=== PATIENT | female | born 1970 | race Hispanic/Latino ===

== ENCOUNTER 2018-09-18 12:37 | Observation (INO) | payer OTHER ==
[~2018-09-18] VITALS: Ht 160 cm; Wt 75.0 kg
[~2018-09-18 12:37] MED LIST: ALPRAZOLAM0.5 MG PO; CAMILA0.35 MG PO; CEPHALEXIN500 MG PO; CETIRIZINE10 MG PO; CIPROFLOXACN500 MG PO; CLARITIN10 M1 PO; DEXILANT60 MG PO; ESCITALOPRAM OX10 MG PO; LORAZEPAM0.5 MG PO; LORTAB5 OR; MECLIZINE25 MG PO; NAPROXEN250 MG PO; OXYBUTYNIN5 M1 PO; PEPCID20 MG PO; PERCOCET1 TA4 PO; PREVACID15 M1; PREVACID30 M1 PO; PYRIDIUM200 MG PO; SLOW FE160 MG PO; ULTRAM50 M1 PO; ZOFRAN ODT4 MG OR; ZOFRAN ODT4 MG PO; ZOFRAN ODT8 MG SL; [UNRECOGNIZED DRUG - OTHER] PO
--- NOTE | 2018-09-18 13:00 | NUR ---
Pt returned to waiting room. Advised of busy ER status.
--- NOTE | 2018-09-18 14:00 | NUR ---
Pt changed into gown and clothing from waist down to be removed. Pt opted to keep shirt on.
--- NOTE | 2018-09-18 14:00 | NUR ---
Pt ambulated to room # 3 with steady gait. Explained busy ER status. Pt showed understanding. Call whittaker within reach. Denies any needs at this time. Will continue to monitor.
[2018-09-18] MEDS ORDERED: SMZ-TMP DS1 TAB PO (14:26)
[2018-09-18] MEDS ORDERED: CITALOPRAM40 MG PO (14:26)
[2018-09-18] MEDS ORDERED: TOPAMAX50 MG PO (14:27)
[2018-09-18] MEDS ORDERED: PANTOPRAZOLE SO40 M1 PO (14:27)
--- NOTE | 2018-09-18 14:45 | NUR ---
Pt resting on stretcher with eyes open. Mother at bedside. Pt appears to be in pain when moving. Explained busy ER and wait time. Pt showed understanding. Call whittaker within reach. Denies any needs at this time. Will continue to monitor.
--- NOTE | 2018-09-18 15:15 | NUR ---
IV established to LAC per EDP order. Explained POC and wait time for medications to infuse. Pt showed understanding. Call whittaker within reach. Denies any needs at this time. Will continue to monitor.
[2018-09-18 15:32] LABS: HEMATOCRIT 36.8 % (37.0-47.0); HEMOGLOBIN 11.9 g/dl (12.0-16.0); IMMATURE GRANULOCYTES 0.6 % (0.0-5.0); MEAN CORPUSCULAR HGB 26.9 pG CALC (26.0-32.0); MEAN CORPUSCULAR HGB CONC 32.3 g/L CALC (32.0-36.0); NEUT# 8.44 thou/uL (2.00-7.15); RED BLOOD COUNT 4.42 mill/uL (4.20-5.60); RED CELL DISTRI WIDTH 14.3 % (11.5-15.5)
[2018-09-18 15:33] LABS: MEAN CELL VOLUME 83.3 fL CALC (80.0-100.0)
--- NOTE | 2018-09-18 15:38 | NUR ---
Pt placed on fall precautions and advised to not get up without assistance from staff. Pt and mother at bedside showed understanding. Call whittaker within reach. Denies any needs at this time. Will continue to monitor.
--- NOTE | 2018-09-18 15:40 | NUR ---
Pt c/o feeling hot. Temp 100.0. EDP notified. No new orders received.
[2018-09-18 15:48] LABS: BUN 7 mg/dL (7-17); BUN/CREATININE RATIO 11 (12-20 (CALC)); CARBON DIOXIDE 25 mmol/l (22-30); CREATININE 0.6 mg/dL (0.5-1.0); GFR > 60 ML/MIN (>=60 (CALC)); GFR FOR AFR.AMER. > 60 ML/MIN (>=60 (CALC)); POTASSIUM 3.6 mmol/l (3.5-5.1); SODIUM 141 mmol/l (137-146)
--- NOTE | 2018-09-18 16:05 | NUR ---
Azactam finished at this time. IV site to LAC WNL. No redness, swelling or pain to site. IV vancomycin started at this time. Explained possible adverse reactions and to notify nurse. Pt showed understanding. Call whittaker within reach. Denies any needs at this time. Will continue to monitor.
[2018-09-18 16:08] LABS: ANION GAP 15 (6-22 (CALC)); CHLORIDE 105 mmol/l (95-108)
--- NOTE | 2018-09-18 16:10 | NUR ---
Pt states pain is still there, but better than before she was medicated. Pt is an 8 out of 10 pain. EDP notified. New orders received.
--- NOTE | 2018-09-18 16:15 | NUR ---
Pt medicated per EDP order for 8 out of 10 pain. Vancomycin stopped at this time d/t pt going to CT scan. Pt to radiology via W/C.
--- NOTE | 2018-09-18 16:35 | NUR ---
Vancomycin restarted to LAC per EDP order. Site WNL. Explained wait time for medication to infuse. Call whittaker within reach. Denies any needs at this time. Will continue to monitor.
--- NOTE | 2018-09-18 16:50 | NUR ---
Pt. rechecked post pain med administration. Pain level (1-10): 7 Pain better/worse: better Call whittaker within reach. Denies any needs at this time. Will continue to monitor.
--- NOTE | 2018-09-18 17:35 | NUR ---
Vancomycin infusion complete at this time. IV site to LAC WNL. No redness or swelling noted. Pt denies any pain to site. Pt states pain is better now a 5 out of 10. Family at bedside. Updated on POC including admission and room #. Pt showed understanding. Call whittaker within reach. Denies any needs at this time. Will continue to monitor.
--- NOTE | 2018-09-18 17:40 | NUR ---
Report given to JACQUIE Valdivia. Awaiting admission orders before taking pt to floor.
--- NOTE | 2018-09-18 17:41 | NUR ---
Advised charge nurse of orders not yet in per protocol. Will call admitting physician
--- NOTE | 2018-09-18 17:52 | NUR ---
Admission Note Report Given to: SBAR PRINTED TO FLOOR Transported by: X Wheelchair Stretcher Transported with: X Nurse Transporter X Patent IV O2 Curriculum Developer All belongings sent with pt to floor.
--- NOTE | 2018-09-18 17:55 | NUR ---
PT ARRIVED TO MS2 VIA WHEELCHAIR, PT ALERT AND ORIENTED X3, NO SIGNS OF DISTRESS NOTED, RESP EVEN AND UNLABORED. PT AMBULATED TO BATHROOM, STATES PAIN WHEN URINATING DUE TO ABSCESS. ORIENTED TO ROOM AND CALL LIGHT, DISCUSSED POC AND ON CONSULT. PT VERBALIZED UNDERSTANDING. PT PROVIDED WITH PADS AND MESH PANIES. PART A ASSESSMENT COMPLETED. DINNER PROVIDED. CALL LIGHT IN REACH,CONTINUE TO MONITOR.
[2018-09-18 18:40] VITALS: BP 104/59
--- NOTE | 2018-09-18 19:25 | NUR ---
SPOKE WITH EXPEDITION SUPERVISOR, ORDERS FOR TYLENOL AND PAIN MEDICATIONS. NOTIFIED ON-COMING SHIFT.
--- NOTE | 2018-09-18 20:15 | NUR ---
PT SITTING UP IN BED WITH MANY VISITORS IN ROOM. PT C/O PAIN 10/10 IN LEANNE-AREA. IV SITE APPEARS HEALTHY. DISCUSSED POC PT VERBALIZED UNDERSTANDING. ASSESSMENT COMPLETE. CALL LIGHT WITHIN REACH. WILL CONTINUE TO MONITOR.
--- NOTE | 2018-09-18 21:30 | NUR ---
PT C/O ADENIKE BEING SOILED. MODERATE AMOUNT OF SEROSANGINOUS DRAINAGE NOTED TO ADENIKE. CULTURE OBTAIN FROM LABIA WOUND. PROVIDED LINEN CHANGE AND PADS. PT REQUESTING SHOWER PROVIDED NECESSITIES NEEDED AT THIS TIME.
--- NOTE | 2018-09-19 01:07 | NUR ---
PT RESTING IN BED WITH SEVERAL FAMILY MEMBERS IN ROOM. RESPIRATIONS EVEN AND UNLABORED. NO S/S OF PAIN NOTED. CALL LIGHT WITHIN REACH. WILL CONTINUE TO MONITOR.
[2018-09-19 04:15] VITALS: BP 97/64
--- NOTE | 2018-09-19 04:55 | NUR ---
Peripheral IV started. IV access obtained with #22 AutoGuard at Right Wrist with 2 IV stick attempts. Flushes easily with good blood return.
--- NOTE | 2018-09-19 07:15 | NUR ---
REPORT RECEIVED FROM NIGHT NURSE; PT SITTING UP IN BED WALKING ON THE PHONE AND WATCHING TV; FAMILY MEMBERS PRESENT; ASK FOR APPLE JUICE;
[2018-09-19 08:51] VITALS: BP 108/64
--- NOTE | 2018-09-19 09:09 | NUR ---
PT SITTING UP IN BED VISITING WITH FAMILY MEMBERS; AM MEDS ADMINISTERED; PT TOLERATED WELL; AMBULATED TO THE BATHROOM WITH STEADY GAIT; VOIDED 300CC CLEAR, ALANA URINE; VITALS STABLE; NO TEMP; RESP EVEN AND UNLAORED; LUNGS CLEAR; PULSES STRONG; ACTIVE BOWEL SOUND; IVF NS@125CC/HR; SITE APPEARS HEALTHY; COMPLAIN OF NO PAIN; WILL CONTINUE TO MONITOR.
[2018-09-19 10:09] LABS: HEMATOCRIT 31.7 % (37.0-47.0); HEMOGLOBIN 10.3 g/dl (12.0-16.0); MEAN CELL VOLUME 83.9 fL CALC (80.0-100.0); MEAN CORPUSCULAR HGB 27.2 pG CALC (26.0-32.0); MEAN CORPUSCULAR HGB CONC 32.5 g/L CALC (32.0-36.0); RED BLOOD COUNT 3.78 mill/uL (4.20-5.60); RED CELL DISTRI WIDTH 14.5 % (11.5-15.5)
--- NOTE | 2018-09-19 10:20 | NUR ---
DR JAMES CALLED SAID TO MAKE PT NPO; HAVE [facility] CALL IN OR TEAM TO DO AN I&D AT 4PM; PT AWARE OF PROCEDURE, NPO STATUS; MSSG SENT TO [facility];
--- NOTE | 2018-09-19 13:18 | NUR ---
PT REMAINS NPO FOR I&D; CONSENT SIGNED; MEDICATED WITH LORATAB @1250, STATED FEELS BETTER BUT PAIN STILL AN 8/10; NO DISTRESS NOTED; FAMILY AT BEDSIDE.
[2018-09-19 14:49] VITALS: BP 119/68
--- NOTE | 2018-09-19 15:25 | NUR ---
PT ON HER WAY TO OR VIA [facility] IN STABLE CONDITION, ACCOMPANIED BY OR STAFF; MIGUEL ANGEL SENT WITH PT.
--- NOTE | 2018-09-19 17:55 | NUR ---
PT ARRIVED VIA STRETCHER, ACCOMPANIED BY ER STAFF; PT ALERT ORIENT; VANCOMYCIN INFUSING WITHOUT DIFFICULTY; IV SITE APPEARS HEALTHY; VITALS STABLE TEMP 98.1, HR 74, B/P 101/50; O2 99; SM AMT OF BLOODY DRAINAGE NOTED FROM INCISION SITE. C/O OF PAIN 05/12; PT NOW BRUSING HER TEETH; MULTIPLE FAMILIES IN ROOM; SET UP FOR SUPPER; NO DISTRESS NOTED; CALL JACKSON IN REACH.
[2018-09-19 17:57] VITALS: BP 101/50
--- NOTE | 2018-09-19 19:00 | NUR ---
RECEIVED REPORT FROM NURSE GABRIEL, PATIENT RESTING IN BED, FAMILY IN ROOM, C/O PAIN IN OPERATIVE SITE PS 05/12, WILL MEDICATE.
--- NOTE | 2018-09-19 20:00 | NUR ---
PATIENT ALERT AND ORIENTEDX 3 STATED SLIGHT RELIEF FROM PAIN, AMBULATORY, WITH AN ONGOING IVF OG NS @125CC/HR INFUSING WELL ON RT WRIST G22. AND A SALINE LOCK ON LAC, PATENT. PATIENT S/P I&D PERIRECTAL ABCESS PACKING IN PLACE. FAMILY IN ROOM, WILL CONTINUE TO MONITOR. CALL LIGHT AT REACH.
[2018-09-19 20:15] VITALS: BP 99/57
[2018-09-20 00:05] VITALS: BP 127/60
--- NOTE | 2018-09-20 01:50 | NUR ---
PATIENT RESTING IN BED EYES CLOSED NO DISCOMFORTS NOTED AT THIS TIME, FAMILY IN ROOM CALL LIGHT AT REACH
[2018-09-20 04:00] VITALS: BP 130/61
--- NOTE | 2018-09-20 05:18 | NUR ---
PATIENT RESTING IN BED, EYES CLOSED, NO DISCOMFORTS NOTED AT THIS TIME, CALL LIGHT WITHIN REACH
--- NOTE | 2018-09-20 07:15 | NUR ---
PT LAYING IN BED TALKING ON THE PHONE; RESP EVEN AND UNLABORED; COMPLAIN OF PAIN 10/10; REQ USING THE RESTROOM; AMBULATE WITH STEADY GAIT; NIGHT NURSE ADMINISTER MORPHINE;
[2018-09-20 09:08] VITALS: BP 123/48
--- NOTE | 2018-09-20 09:09 | NUR ---
PT SITTING UP IN BED WATCHING TV; FAMILY AT BEDSIDE; PT REQUESTING A SHOWER; STOP IVF FOR SHOWER; ADMINISTERED AM MEDS; RESP EVEN AND UNLABORED; PULSES STRONG; ABD SOFT, ACTIVE BS; PT WILL ATTEMPT TO REMOVE DRESSING FROM LABIA WHILE IN THE SHOWER; ADVISE TO CALL IF SHE NEEDS HELP; NO S/S OF DISTRESS NOTED; WILL CONTINUE TO MONITOR.
--- NOTE | 2018-09-20 11:00 | NUR ---
MEDICATED PT WITH TYLENOLFOR HEADACHE 05/12; MORPHINE FOR EVELIA PAIN 03/12; OLD DRESSING REMOVED; NEW DRESSING CHANGE DONE WITH MOIST 4X4 GUAZE; PT VOICED MODERATED DISCOMFORT;
--- NOTE | 2018-09-20 11:35 | NUR ---
DR BASSETT AT BEDSIDE TO DISCUSS POC. D/C IV FLUIDS.
--- NOTE | 2018-09-20 15:50 | NUR ---
PT STATED SHE VOMITED EARLIER IN THE TOILET, NOW MEDICATED WITH ZOFRAN AND TYLENOL FOR HEADACHE; COOL WASH CLOTH GIVEN FOR FOREHEAD; RESP EVEN AND UNLABORED; NO S/S OF DISTRESS NOTED; FAMILY MEMBER PRESENT;
[2018-09-20 16:59] VITALS: BP 117/70
--- NOTE | 2018-09-20 17:15 | NUR ---
MEDICATED WITH LORATAB FOR HEADACHE 04/12; VOIDED 300CC CLEAR, YELLOW URINE; VITALS STABLE. FAMILY AT BEDSIDE.
--- NOTE | 2018-09-20 18:18 | NUR ---
SITTING UP IN BED, STATED HEADACHE STILL 10/10 AFTER LORATAB GIVEN; STILL FEELS NAUSEA BUT IS REFUSING PAIN MEDS AND ZOSYN AT THIS TIME; MULTIPLE VISITIOS DAILY; IVF INFUSING WITHOUT DIFFICULTY; CALL JACKSON IN REACH.
[2018-09-20 19:00] VITALS: BP 114/75
--- NOTE | 2018-09-20 19:00 | NUR ---
PATIENT RESTING IN BED, EYES CLOSED, EVEN UMLABORED BREATHING CALL LIGHT AREACH, FAMILY IN ROOM.
--- NOTE | 2018-09-20 20:00 | NUR ---
PATIENT ALERT AND ORIENTEDX3 ABLE TO MAKE NEEDS KNOWN, AMBULATORY WITH STEADY GAIT, S/P I&D PERIRECTAL ABSCESS WET PACKING ORDERED. WITH SALINE LOCK ON RT WRIST PATENT, CURRENTLY RESTING IN BED, FAMILY IN ROOM, CALL LIGHT AT REACH
--- NOTE | 2018-09-20 22:00 | NUR ---
PATIENT MEDICATED WITH PRN LORTAB AT 2119, CHANGE DRESSING ORDERED AT THIS TIME USING WET PACKING. PROCEDURE TOLERATED.
--- NOTE | 2018-09-21 01:28 | NUR ---
PATIENT C/O HEADACHE BP 120/68, EVEN UNLABORED BREATHING, PRN TYLENOL GIVEN WILL REEVALUATE
[2018-09-21 03:50] VITALS: BP 103/34
--- NOTE | 2018-09-21 04:24 | NUR ---
PATIENT RESTING IN BED, EYES CLOSED NO DISCOMFORTS NOTED AT THIS TIME, CALL LIGHT WITHIN REACH, FAMILY IN ROOM
[2018-09-21 04:38] LABS: HEMATOCRIT 31.5 % (37.0-47.0); HEMOGLOBIN 10.2 g/dl (12.0-16.0); IMMATURE GRANULOCYTES 2.2 % (0.0-5.0); MEAN CELL VOLUME 84.5 fL CALC (80.0-100.0); MEAN CORPUSCULAR HGB 27.3 pG CALC (26.0-32.0); MEAN CORPUSCULAR HGB CONC 32.4 g/L CALC (32.0-36.0); NEUT# 3.34 thou/uL (2.00-7.15); RED BLOOD COUNT 3.73 mill/uL (4.20-5.60); RED CELL DISTRI WIDTH 14.4 % (11.5-15.5)
[2018-09-21 05:02] LABS: AMYLASE 36 u/l (30-110); ANION GAP 13 (6-22 (CALC)); BILIRUBIN, TOTAL 0.4 mg/dL (0.0-1.4); BUN 4 mg/dL (7-17); BUN/CREATININE RATIO 6 (12-20 (CALC)); CARBON DIOXIDE 26 mmol/l (22-30); CHLORIDE 107 mmol/l (95-108); CREATININE 0.6 mg/dL (0.5-1.0); GFR > 60 ML/MIN (>=60 (CALC)); GFR FOR AFR.AMER. > 60 ML/MIN (>=60 (CALC)); LIPASE 82 u/l (23-300); SODIUM 141 mmol/l (137-146); TOTAL PROTEIN 6.4 g/dL (6.3-8.2)
[2018-09-21 05:03] LABS: ALBUMIN 3.3 g/dL (3.2-5.0); ALKALINE PHOSPHATASE 199 u/l (38-126); SGOT/AST 49 u/l (14-36)
--- NOTE | 2018-09-21 05:44 | NUR ---
VANCO TROUGH WAS 9, DUE VANCOMYCIN GIVEN.
[2018-09-21 06:01] VITALS: BP 122/60
--- NOTE | 2018-09-21 07:20 | NUR ---
PT REPORT RECIEVED FROM NAVEED PEARL. PT SLEEPING. NO S/S OF DISTRESS. CALL LIGHT IN REACH. WILL CONTINUE TO MONITOR.
[2018-09-21 09:05] VITALS: BP 113/58
--- NOTE | 2018-09-21 09:05 | NUR ---
PT A/O X3. SPEECH IS CLEAR. PT C/O NAUSEA. MEDICATED W/ 4 MG ZOFRAN IV. PT C/O HEADACHE 10 OUT OF 10 ON PAIN AND VAGINAL PAIN 7 OUT OF 10 ON PAIN SCALE. MEDICATED W/ ONE 7.5 LORTAB PO. REPOSITIONED FOR COMFORT. RESP EVEN AND UNLABORED. LUNG SOUNDS CLEAR. BOWEL SOUNDS ACTIVE X4. STRONG RADIAL AND PEDAL PULES. #22 RW SL. FLUSHED AND PATENT. SITE APPEARS HEALTHY. PT HAS A WET DRESSING IN PLACE TO VAGINAL AREA. PT DENIES ANY FURTHER NEEDS. POC DISCUSSED. SAFETY PRECAUTIONS IN PLACE. CALL LIGHT IN REACH. WILL CONTINUE TO MONITOR.
--- NOTE | 2018-09-21 11:52 | NUR ---
DRESSING TO VAGINAL AREA REMOVED. SMALL AMOUNT OF BLOODY DRAINAGE NOTED. CLEANED W/ SALING. PACKED W/ WET GUAZE. WILL CONTINUE TO MONITOR
--- NOTE | 2018-09-21 12:24 | NUR ---
PT LYING IN BED EATING LUNCH. NO C/O PAIN OR NEEDS. CALL LIGHT IN REACH. WILL CONTINUE TO MONITOR.
--- NOTE | 2018-09-21 14:44 | NUR ---
DR. BRUNNER IN TO SEE PT
[2018-09-21] MEDS ORDERED: DOXYCYCL HYC100 MG PO (14:48)
[2018-09-21] MEDS ORDERED: LORTAB 5/3255 MG PO (14:50)
--- NOTE | 2018-09-21 16:34 | NUR ---
D/C INSTRUCTIONS DISCUSSED W/ PT. PT STATES UNDERSTANDING. IV REMOVED. CATHETER INTACT. PT GETTING DRESSED AT THIS TIME.
--- NOTE | 2018-09-21 17:15 | NUR ---
Discharge instructions given. Patient verbalizes understanding of same. Discharged in stable condition via Wheelchair to Home with family. All belongings sent with pt.
== END 2018-09-21 17:10 | disposition home health service (06) | DRG 747 ==
LOC: ED 12:37 → ED-I 17:03 → ED 17:10 → MS2 17:11
PROVIDERS: Family Medicine; Internal Medicine Nephrology; Nurse Practitioner Family; ADMIT Internal Medicine; ATTEND Internal Medicine
PROC: 0U9M0ZZ Drainage of Vulva, Open Approach (ICD-10-PCS; principal; 2018-09-19)
DX: N75.1 Abscess of Bartholin's gland (principal); F32.9 Major depressive disorder, single episode, unspecified; F41.1 Generalized anxiety disorder; K21.9 Gastro-esophageal reflux disease without esophagitis; K64.4 Residual hemorrhoidal skin tags; D64.9 Anemia, unspecified; G43.909 Migraine, unspecified, not intractable, without status migrainosus; B95.61 Methicillin susceptible Staphylococcus aureus infection as the cause of diseases classified elsewhere; Z90.710 Acquired absence of both cervix and uterus; Z90.79 Acquired absence of other genital organ(s); Z90.722 Acquired absence of ovaries, bilateral
CPT/HCPCS: G0378; J0131; Q9967

== ENCOUNTER → 2018-10-18 | Outpatient (REF) | payer OTHER ==
[~2018-10-18] MED LIST changes: +CITALOPRAM40 MG PO; +DOXYCYCL HYC100 MG PO; +LORTAB 5/3255 MG PO; +PANTOPRAZOLE SO40 M1 PO; +SMZ-TMP DS1 TAB PO; +TOPAMAX50 MG PO
== END | disposition home or self-care (01) | DRG 951 ==
LOC: FIORUCCI 10:22
PROVIDERS: ATTEND Surgery
DX: Z48.01 Encounter for change or removal of surgical wound dressing (principal)

== ENCOUNTER 2020-02-13 16:16 | Emergency (ER) | payer OTHER, MEDICAID ==
[~2020-02-13] VITALS: Ht 160 cm; Wt 84.1 kg
[2020-02-13 18:03] LABS: MEAN CELL VOLUME 84.4 fL CALC (80.0-100.0); MEAN CORPUSCULAR HGB 27.4 pG CALC (26.0-32.0); MEAN CORPUSCULAR HGB CONC 32.4 g/dL CAL (32.0-36.0); NEUT# 1.89 thou/uL (2.00-7.15); RED BLOOD COUNT 4.68 mill/uL (4.20-5.60); RED CELL DISTRI WIDTH 13.8 % (11.5-15.5)
[2020-02-13 18:05] LABS: HEMATOCRIT 39.5 % (37.0-47.0); HEMOGLOBIN 12.8 g/dl (12.0-16.0)
[2020-02-13 18:06] LABS: URINE BILIRUBIN - DIPSTICK NEGATIVE (NEGATIVE); URINE BLOOD DIPSTICK NEGATIVE (NEGATIVE); URINE COLOR YELLOW; URINE GLUCOSE - DIPSTICK NEGATIVE (NEGATIVE); URINE KETONE TRACE mg/dL (NEGATIVE); URINE LEUK ESTERASE NEGATIVE (NEGATIVE); URINE NITRITE - DIPSTICK NEGATIVE (Negative); URINE PROTEIN - DIPSTICK TRACE mg/dL (NEG-TRACE); URINE SPECIFIC GRAVITY >=1.030; URINE UROBILINOGEN - DIPSTICK 0.2 E.U./dL (0.2)
[2020-02-13 18:17] LABS: ALKALINE PHOSPHATASE 148 u/l (38-126); ANION GAP 13 (6-22 (CALC)); BILIRUBIN, TOTAL 0.4 mg/dL (0.0-1.4); BUN 10 mg/dL (7-17); BUN/CREATININE RATIO 16 (12-20 (CALC)); CARBON DIOXIDE 24 mmol/l (22-30); CHLORIDE 107 mmol/l (95-108); CREATININE 0.6 mg/dL (0.5-1.0); GFR > 60 ML/MIN (>=60 (CALC)); GFR FOR AFR.AMER. > 60 ML/MIN (>=60 (CALC)); POTASSIUM 3.9 mmol/l (3.5-5.1); SGOT/AST 66 u/l (14-36); SODIUM 139 mmol/l (137-146)
[2020-02-13 18:19] LABS: ALBUMIN 4.5 g/dL (3.2-5.0); TOTAL PROTEIN 7.7 g/dL (6.3-8.2)
[2020-02-13 19:25] VITALS: BP 121/66
== END 2020-02-13 19:25 | disposition home or self-care (01) | DRG 179 ==
LOC: ED 16:16
PROVIDERS: Student in an Organized Health Care Education/Training Program
DX: U07.1 COVID-19 (principal)

== ENCOUNTER 2020-02-15 15:54 | Inpatient (IN) | payer OTHER, MEDICAID ==
[~2020-02-15] VITALS: Ht 160 cm; Wt 85.3 kg
--- NOTE | 2020-02-15 16:17 | NUR ---
PT TO ROOM 15. CHANGED TO GOWN. MONITORS APPLIED. PT ASSESSED. REPORTS FEVER AND DIARRHEA SINCE THURSDAY. HAD FEVER AT HOME AND TOOK NYQUIL.
[2020-02-15 16:37] LABS: HEMOGLOBIN 13.1 g/dl (12.0-16.0); IMMATURE GRANULOCYTES 0.3 % (0.0-5.0); MEAN CELL VOLUME 83.5 fL CALC (80.0-100.0); MEAN CORPUSCULAR HGB 26.7 pG CALC (26.0-32.0); NEUT# 2.81 thou/uL (2.00-7.15); RED BLOOD COUNT 4.91 mill/uL (4.20-5.60); RED CELL DISTRI WIDTH 13.5 % (11.5-15.5)
[2020-02-15 16:56] LABS: HCG SERUM/URINE (NEG/POS) NEGATIVE (NEGATIVE)
[2020-02-15 17:00] LABS: ALBUMIN 4.5 g/dL (3.2-5.0); ALKALINE PHOSPHATASE 146 u/l (38-126); ANION GAP 14 (6-22 (CALC)); BILIRUBIN, TOTAL 0.4 mg/dL (0.0-1.4); BUN 10 mg/dL (7-17); BUN/CREATININE RATIO 17 (12-20 (CALC)); CARBON DIOXIDE 24 mmol/l (22-30); CHLORIDE 103 mmol/l (95-108); CREATININE 0.6 mg/dL (0.5-1.0); GFR > 60 ML/MIN (>=60 (CALC)); GFR FOR AFR.AMER. > 60 ML/MIN (>=60 (CALC)); POTASSIUM 4.4 mmol/l (3.5-5.1); SGOT/AST 64 u/l (14-36); SODIUM 136 mmol/l (137-146); TOTAL PROTEIN 7.8 g/dL (6.3-8.2)
[2020-02-15 17:20] LABS: URINE BILIRUBIN - DIPSTICK NEGATIVE (NEGATIVE); URINE BLOOD DIPSTICK NEGATIVE (NEGATIVE); URINE COLOR YELLOW; URINE GLUCOSE - DIPSTICK NEGATIVE (NEGATIVE); URINE KETONE 15 mg/dL (NEGATIVE); URINE LEUK ESTERASE NEGATIVE (NEGATIVE); URINE NITRITE - DIPSTICK NEGATIVE (Negative); URINE PROTEIN - DIPSTICK TRACE mg/dL (NEG-TRACE); URINE UROBILINOGEN - DIPSTICK 0.2 E.U./dL (0.2)
--- NOTE | 2020-02-15 17:30 | NUR ---
PT RESTING ON STRETCHER. IV INFUSING
[2020-02-15 17:43] LABS: C-REACTIVE PROTEIN 2.2 mg/dL (0-0.9)
--- NOTE | 2020-02-15 18:30 | NUR ---
PT RESTING ON STRETCHER.
--- NOTE | 2020-02-15 18:52 | NUR ---
REPORT GIVEN TO FLIP LUCIO .
--- NOTE | 2020-02-15 19:35 | NUR ---
PHONE REPORT TO SUMA ON MS2
--- NOTE | 2020-02-15 19:43 | NUR ---
PT TRANSPORTED TO 289 IN IMPROVED STABLE CONDITION
--- NOTE | 2020-02-15 19:52 | NUR ---
PT ARRIVES TO UNIT, ADMITTED TO ROOM 289. PT AMBULATORY TO BED. GAIT STEADY AND BALANCED. ORIENTED TO UNIT, ROOM, BED, CALL JACKSON/TV/LIGHT CONTROL.
[2020-02-15 19:55] VITALS: BP 118/58
--- NOTE | 2020-02-15 22:00 | NUR ---
ADMISSION AND PHYSICAL ASSESMENT COMPLETE. PT CURRENTLY DENIES PAIN OR DISCOMFORT. SCHEDULED MEDS ADMINISTERED, SEE E-MAR. PT DENIES ANY NEEDS AT THIS TIME. PLAN OF CARE REVIEWED, PT DENIES QUESTIONS, VERBALIZES UNDERSTANDING. ITEMS WITHIN REACH, BED LOCKED IN LOW POSITION W/ BEDRAILS UP X2. CALL JACKSON WITHIN REACH, AGREES TO CALL PRN.
--- NOTE | 2020-02-16 01:15 | NUR ---
PT APPEARS TO BE SLEEPING COMFORTABLY, NO APPARENT DISTRESS, RESPIRATIONS REGULAR AND UNLABORED. ITEMS REMAIN WITHIN REACH, BED REMAINS LOCKED IN LOW POSITION W/ BEDRAILS UP X2. CALL JACKSON REMAINS WITHIN REACH.
[2020-02-16 05:00] VITALS: BP 109/51
--- NOTE | 2020-02-16 06:00 | NUR ---
ASSESMENT UNCHANGED FROM BEGINING OF SHIFT BASELINE ASSESMENT. AM HEMODYNAMICS WNL/ STABLE. PT AFEBRILE. PT DENIES NEEDS AT THIS TIME. ITEMS REMAIN WITHIN REACH, BED REMAINS LOCKED IN LOW POSITION W/ BEDRAILS UP X2. CALL JACKSON REMAINS WITHIN REACH, AGREES TO CALL PRN.
[2020-02-16 09:11] VITALS: BP 102/46
--- NOTE | 2020-02-16 09:11 | NUR ---
RECIEVED REPORT FROM NAVEED VALENTINO. PT RESTING IN SEMI FOWLERS POSITION UPON ENTERING ROOM. INTRODUCED SELF TO PT AND DISCUSSED POC. PT IS A/OX3 AND AMBULATORY. ASSESSMENT AND VITALS COMPLETED. BP 102/46, HR88, O293% ON ROOM AIR. RESPIRATIONS ARE EVEN AND UNLABORED WITH NO SIGNS OF DISTRESS. LUNG SOUNDS ARE CLEAR. HEART RHYTHM IS NORMAL. BOWEL SOUNDS ARE HYPOACTIVE. LAST REPORTED BM 02/15/20. RADIAL AND PEDAL PULSES ARE STRONG WITH NORMAL CAPILLARY REFILL. IV FLUIDS RUNNNING AT 100ML ORDERED, SITE APPEARS HEALTHY AND PATNET. PT COMPLAINS OR A 8/10 HEADACHE, TYLENOL TO BE ADMINISTERED WITH MORNING MEDS.WRITTER WAS GIVEN A PAPER TO GIVE TO PT THAT STATED HER SON WAS POSITIVE FOR COVID 19. PAPER GIEVN TO PT AT THIS TIME. PT DENIES ANY OTHER PAINS OR DISCOMFORTS AT THIS TIME. ALL SAFETY AND ISOLATION PRECAUTIONS IN PLACE WITH CALL LIGHT IN REACH. WILL CONTINUE TO MONITOR
--- NOTE | 2020-02-16 10:00 | NUR ---
REASSESSMENT OF TYLENOL AT THIS TIME RESULTING IN 02/09. PT STATES THAT TYLENOL IS WORKING. ALL SAFETY PRECAUTIONS IN PLACE WITH CALL LIGHT IN REACH. WILL CONTINUE TO MONITOR
--- NOTE | 2020-02-16 12:00 | NUR ---
PT SLEEPING IN SEMI FOWLERS POSITION. RESPIRATIONS ARE EVEN AND UNLABORED WITH NO SIGNS OF DISTRESS. NO SIGNS OF ANY PAIN OR DISCOMFORTS AT THIS TIME.IV FLUIDS RUNNING AT 100 ML ORDERED, SITE APPEARS HEALTHY AND PATENT. ALL SAFTEY PRECAUTIONS AND ISOLATION PRECAUTIONS IN PLACE WITH CALL LIGHT IN REACH. WILL CONTINUE TO MONITOR
[2020-02-16 15:27] VITALS: BP 95/50
--- NOTE | 2020-02-16 15:42 | NUR ---
PT COMPLAINS OF 8/10 HEAD ACHE AT THIS TIME. TYLENOL ADMINSTERED. RESPIRATIONS ARE EVEN AND UNLABROED WITH NO SIGNS FO DSITRESS. ALL SAFTEY AND ISOLATION PRECAUTIONS REMAIN IN PLACE. WILL CONTINUE TO MONITOR
--- NOTE | 2020-02-16 16:19 | NUR ---
PT RESTING IN SEMI FOWLERS POSITION WITH EYES CLOSED. PT STATES THAT TYLENOL HAS YET TO HELP WITH HEAD ACH. RESPIRATIONS ARE EVEN AND UNLABORED WITH NO SIGNS OF DISTRESS. ALL SAFETY PRECAUTIONS REMAIN IN PLACE WITH CALL LIGHT IN REACH WILL CONTINUE TO MONITOR
--- NOTE | 2020-02-16 18:30 | NUR ---
PT COMPLAINS OF 8/10 HEAD ACHE. LORTAB ADMINISTERED AT THIS TIME. RESPIRATIONS ARE EVEN AND UNLABORED.ALL SAFTEY PRECAUTIONS IN PLACE. WILL CONTINUE TO MONITOR
[2020-02-16 19:05] VITALS: BP 110/59
--- NOTE | 2020-02-16 20:34 | NUR ---
PT LAYING IN BED RESTING, NO APPARENT DISTRESS, RESPIRATIONS REG & UNLABORED. PHYSICAL ASSESMENT COMPLETE. PT CURRENTLY DENIES PAIN OR DISCOMFORT. SCHEDULED MEDS ADMINISTERED, SEE E-MAR. PT DENIES ANY NEEDS AT THIS TIME. PLAN OF CARE REVIEWED, PT DENIES QUESTIONS, VERBALIZES UNDERSTANDING. ITEMS WITHIN REACH, BED LOCKED IN LOW POSITION W/ BEDRAILS UP X2. CALL JACKSON WITHIN REACH, AGREES TO CALL PRN.
[2020-02-17 05:20] VITALS: BP 130/76
[2020-02-17 05:38] LABS: HEMATOCRIT 35.7 % (37.0-47.0); HEMOGLOBIN 11.4 g/dl (12.0-16.0); IMMATURE GRANULOCYTES 0.3 % (0.0-5.0); MEAN CORPUSCULAR HGB 27.1 pG CALC (26.0-32.0); MEAN CORPUSCULAR HGB CONC 31.9 g/dL CAL (32.0-36.0); NEUT# 1.99 thou/uL (2.00-7.15); RED BLOOD COUNT 4.2 mill/uL (4.20-5.60); RED CELL DISTRI WIDTH 13.6 % (11.5-15.5)
[2020-02-17 06:00] LABS: ALBUMIN 3.3 g/dL (3.2-5.0); ALKALINE PHOSPHATASE 108 u/l (38-126); ANION GAP 9 (6-22 (CALC)); BILIRUBIN, TOTAL 0.3 mg/dL (0.0-1.4); BUN 6 mg/dL (7-17); BUN/CREATININE RATIO 11 (12-20 (CALC)); C-REACTIVE PROTEIN 2.2 mg/dL (0-0.9); CARBON DIOXIDE 26 mmol/l (22-30); CHLORIDE 105 mmol/l (95-108); CREATININE 0.6 mg/dL (0.5-1.0); GFR > 60 ML/MIN (>=60 (CALC)); GFR FOR AFR.AMER. > 60 ML/MIN (>=60 (CALC)); POTASSIUM 3.9 mmol/l (3.5-5.1); SGOT/AST 39 u/l (14-36); SODIUM 136 mmol/l (137-146); TOTAL PROTEIN 6.2 g/dL (6.3-8.2)
[2020-02-17 08:42] VITALS: BP 95/49
--- NOTE | 2020-02-17 08:47 | NUR ---
RECIEVED REPORT FROM NAVEED VALENTINO. PT RESTING IN SEMI FOLWERS POSIYTION WITH EYES CLOSED. INTRODUCED SELF TO PT AND DISCUSSED POC. ASSESSMENT AND VIATLS COMPLETED AT THIS TIME. BP 95/49, HR 71, O2 94% ON ROOM AIR. RESPIRATIONS ARE EVEN AND UNLABORED WITH NO SIGNS OF DISTRESS. LUNG SOUNDS ARE DIMINSHED, PT COMPLAINS OF SOB ONLY WHEN ASKED TO TAKE DEEP BREATHS. HEART RHYTHM IS NORMAL. BOWEL SOUNDS ARE HYPOACTIVE, LAST REPORTED BM 02/16/20. RADIAL AND PEDAL PULSES ARE BOTH STRONG WITH NORMAL CAPILLARY REFILL. PT COMPLAINS OF 7/10 HEADACHE AND NAUSEA. TYLENOL AND ZOFRAN TO BE ADMINISTERED. PT DENIES ANY OTHER PAINS OR DSICOMFORTS AT THIS TIME. ALL SAFETY PRECAUTIONS IN PLACE WITH CALL LIGHT IN REACH. WILL CONTINUE TO MONITOR.
--- NOTE | 2020-02-17 08:54 | NUR ---
DR RODRIGUEZ AT BEDSIDE DISCUSSING POC AT THIS TIME.
--- NOTE | 2020-02-17 09:46 | NUR ---
REASSESSMENT OF PAIN AT THIS TIME. PT STATES SHE NO LONGER HAS A HEADACH OR NAUSEA. RESPIRATIONS ARE EVEN AND UNLABORED. ALL SAFTEY AND ISOLATION PRECAUTIONS REMIAN IN PLACE. [facility] ONTINUE TO MONITOR
--- NOTE | 2020-02-17 12:36 | NUR ---
PT RESTING IN SEMI FOWLERS POSITION WITH EYES CLOSED. RESPIRATIONS ARE EVEN AND UNLABORED WITH NO SIGNS OF DISTRESS. PT COMPLAINS THAT SHE "JUST REALLY TIRED" PT DENIES ANY PAIN OR NEEDS AT THIS TIME. ALL SAFTEY AND ISOLATION PRECAUTIONS IN PLACE WITH CALL LIGHT IN REACH. WILL CONTINUE TO MONITOR
[2020-02-17 15:15] VITALS: BP 106/50
--- NOTE | 2020-02-17 16:27 | NUR ---
PT COMPLAINS OF A 8/10 HEADACHE , MOTRIN TO BE ADMINISTERED. RESPIRATIONS ARE EVEN AND UNLABORED AT THIS TIME. PT DENIES ANY OTHER PAINS OR ADDITIONAL NEEDS. ALL SAFTEY AND ISOLATION PRECAUTIONS IN PLACE WITH CALL LIGHT IN REACH. WILL CONTINUE TO MONITOR.
[2020-02-17 19:40] VITALS: BP 100/47
--- NOTE | 2020-02-17 21:30 | NUR ---
PT LAYING IN BED RESTING, NO APPARENT DISTRESS, RESPIRATIONS REG & UNLABORED. PHYSICAL ASSESMENT COMPLETE. PT CURRENTLY DENIES PAIN OR DISCOMFORT. SCHEDULED MEDS ADMINISTERED, SEE E-MAR. PRN APAP ADMINISTERED FOR C/O THROBBING HEADACHE 02/09. SEE E-MAR. PT DECLINES PRN XANAX. HS SNACK PROVIDED. PT DENIES FURTHER NEEDS AT THIS TIME. PLAN OF CARE REVIEWED, PT DENIES QUESTIONS, VERBALIZES UNDERSTANDING. ITEMS WITHIN REACH, BED LOCKED IN LOW POSITION W/ BEDRAILS UP X2. CALL JACKSON WITHIN REACH, AGREES TO CALL PRN.
[2020-02-18 06:00] VITALS: BP 109/52
--- NOTE | 2020-02-18 06:02 | NUR ---
SpO2 88% ON ROOM AIR THIS AM. PT IN NO RESPIRATORY DISTRESS. RESPIRATIONS REGULAR AND UNLABORED. PT ENCOURAGED TO COUGH AND DEEP BREATHE. SpO2 MAX 90%. PT REPORTS DRY, NON-PRODUCTIVE COUGH STARTING LAST NIGHT AND WORSE THIS AM. O2 @ 2L/M VIA NC APPLIED TO PT. SpO2 INCREASES TO 96%. CALL JACKSON WITHIN REACH, PT AGREES TO CALL PRN.
--- NOTE | 2020-02-18 08:30 | NUR ---
PT RESTING IN BED, NO SIGNS OF DISTRESS NOTED, RESP EVEN AND UNLABORED. PT ALERT AND ORIENTED X3, DISCUSSED POC, PT C/O BLOOD IN HER URINE WHEN SHE WIPED. DENIES ANY PAIN OR BURNING. WILL NOTIFY , INFORMED PT SHE MAY NEED TO PROVIDE A UA, VERBALIZED UNDERSTANDING. PT MEDICATED FOR HEADACHE, ASSESSMENT COMPLETED, CALL LIGHT IN REACH,CONTINUE TO MONITOR.
[2020-02-18 08:31] VITALS: BP 119/76
[2020-02-18 10:38] VITALS: BP 106/54
--- NOTE | 2020-02-18 11:34 | NUR ---
DISCHARGE INSTRUCTIONS PROVIDED, COVID INFORMATION PACKET PROVIDED, IV SITE REMOVED, CATHETER INTACT. PT TO CALL ONCE RIDE ARRIVES. CONTINUE TO MONITOR.
[2020-02-18 11:54] LABS: URINE BILIRUBIN - DIPSTICK NEGATIVE (NEGATIVE); URINE BLOOD DIPSTICK NEGATIVE (NEGATIVE); URINE CLARITY CLEAR; URINE COLOR YELLOW; URINE GLUCOSE - DIPSTICK NEGATIVE (NEGATIVE); URINE KETONE TRACE mg/dL (NEGATIVE); URINE LEUK ESTERASE NEGATIVE (Negative); URINE NITRITE - DIPSTICK NEGATIVE (Negative); URINE PROTEIN - DIPSTICK NEGATIVE (NEG-TRACE); URINE UROBILINOGEN - DIPSTICK 0.2 E.U./dL (0.2)
--- NOTE | 2020-02-18 12:00 | NUR ---
Discharge instructions given. Patient verbalizes understanding of same. Discharged in stable condition via Wheelchair to Home with family. All belongings sent with pt.
== END 2020-02-18 12:00 | disposition home or self-care (01) | DRG 179 ==
LOC: ED 15:54 → ED-I 17:50 → ED 18:05 → ED-I 18:06 → MS2 18:13
PROVIDERS: Family Medicine; Internal Medicine; Nurse Practitioner Family; ADMIT Internal Medicine; ATTEND Internal Medicine
DX: U07.1 COVID-19 (principal); I95.9 Hypotension, unspecified; E86.0 Dehydration; K21.9 Gastro-esophageal reflux disease without esophagitis; F41.9 Anxiety disorder, unspecified; R73.9 Hyperglycemia, unspecified
CPT/HCPCS: J1650

== ENCOUNTER 2020-05-10 14:34 | Inpatient (IN) | payer OTHER, MEDICAID ==
[~2020-05-10] VITALS: Ht 160 cm; Wt 84.0 kg
[2020-05-10] VITALS (9 sets, daily range): BP systolic 98–116; BP diastolic 48–58
--- NOTE | 2020-05-10 15:02 | NUR ---
STARTED IV ON PT WITHOUT COMPLICATIONS. REPORTS GENERALIZED BODY ACHES. CONTINUING TO MONITOR.
--- NOTE | 2020-05-10 15:10 | NUR ---
IV FLUIDS INFUSING, LAB HERE FOR BLOOD CULTURE DRAWN
--- NOTE | 2020-05-10 15:11 | NUR ---
PT LAYING ON STRETCHER, MOANING.
[2020-05-10 15:23] LABS: HEMATOCRIT 38.6 % (37.0-47.0); HEMOGLOBIN 12.8 g/dl (12.0-16.0); IMMATURE GRANULOCYTES 0.3 % (0.0-5.0); MEAN CELL VOLUME 82.7 fL CALC (80.0-100.0); MEAN CORPUSCULAR HGB 27.4 pG CALC (26.0-32.0); MEAN CORPUSCULAR HGB CONC 33.2 g/dL CAL (32.0-36.0); NEUT# 10.49 thou/uL (2.00-7.15); RED BLOOD COUNT 4.67 mill/uL (4.20-5.60); RED CELL DISTRI WIDTH 13.9 % (11.5-15.5)
[2020-05-10 15:40] LABS: ALKALINE PHOSPHATASE 118 u/l (38-126); ANION GAP 15 (6-22 (CALC)); BUN 10 mg/dL (7-17); BUN/CREATININE RATIO 13 (12-20 (CALC)); CARBON DIOXIDE 25 mmol/l (22-30); CHLORIDE 99 mmol/l (95-108); CREATININE 0.8 mg/dL (0.5-1.0); GFR > 60 ML/MIN (>=60 (CALC)); GFR FOR AFR.AMER. > 60 ML/MIN (>=60 (CALC)); POTASSIUM 3.9 mmol/l (3.5-5.1); SGOT/AST 25 u/l (14-36); SODIUM 135 mmol/l (137-146)
--- NOTE | 2020-05-10 15:40 | NUR ---
PT TEMP IS INCREASING NOTIFIED. PT STATES IS BECOMING NAUSEATED. GAGGED BUT NOTHING CAME UP, PT STATES SHE IS FREEZING, ADVISED PT THAT I CAN NOT GIVE HER A BLANKET WITH HER TEMPERATURE GOING UP. PT REMAINS ALERT/ORIENTED X3
[2020-05-10 15:49] LABS: ACT PARTIAL THROMBO TIME 20.1 SECONDS (20.0-32.5); PROTHROMBIN TIME 9.7 SECONDS (9.0-12.5)
[2020-05-10 15:51] LABS: ALBUMIN 4.4 g/dL (3.2-5.0); BILIRUBIN, TOTAL 0.6 mg/dL (0.0-1.4); TOTAL PROTEIN 7.9 g/dL (6.3-8.2)
--- NOTE | 2020-05-10 16:51 | NUR ---
2ND LACTIC ACID DRAWN, IV FLUIDS INFUSED. PT RESTING AT THIS TIME. STATES AFTER TYLENOL SUPPOSITORY FEELS A LITTLE BETTER.
[2020-05-10 17:40] LABS: URINE BILIRUBIN - DIPSTICK NEGATIVE (NEGATIVE); URINE BLOOD DIPSTICK NEGATIVE (NEGATIVE); URINE COLOR YELLOW; URINE GLUCOSE - DIPSTICK NEGATIVE (NEGATIVE); URINE KETONE NEGATIVE (NEGATIVE); URINE LEUK ESTERASE NEGATIVE (NEGATIVE); URINE NITRITE - DIPSTICK NEGATIVE (Negative); URINE PROTEIN - DIPSTICK NEGATIVE (NEG-TRACE); URINE SPECIFIC GRAVITY 1.025; URINE UROBILINOGEN - DIPSTICK 0.2 E.U./dL (0.2)
--- NOTE | 2020-05-10 18:23 | NUR ---
PT STATES FEELS MUCH BETTER AT THIS TIME, TEMP IS DOWN TO 98.8, PT REMAINS ALERT/ORIENTED X3, NS REMAINS INFUSING. PT HAS BEEN UP TO BATHROOM WITH A TOTAL OF 300CC OUT. PT DENIES ANY NAUSEA OR VOMITING AT THIS TIME
--- NOTE | 2020-05-10 18:40 | NUR ---
PT REPORT CALLED TO TONYA IN ICU
--- NOTE | 2020-05-10 19:00 | NUR ---
PT TAKEN TO ICU PER W/C AND CARDIAC MONITER. ALERT/ORIENTED X3, NO COMPLAINTS AT THIS TIME
--- NOTE | 2020-05-10 19:10 | NUR ---
to icu 3. pt states she feels so much better.... ready to go home. denies cough. feels like she has energy. afebrile on arrival. color pink. skin w/c. iv is hl on arrival
--- NOTE | 2020-05-10 20:00 | NUR ---
MEAL GIVEN PT C/O BEING HUNGRY. IV FLUIDS (4TH LITER) STARTED PRIMARY IV FLUIDS AT 150ML/HR-TOLERATING WELL. TALKATIVE. GAIT STEADY. UP AND ABOUT IN ROOM
--- NOTE | 2020-05-10 22:00 | NUR ---
TO BSC WITH STANDBY ASSIST. FLUIDS INFUSING. DENIES PAIN, H/A, LETHARGY. NO DISTRESS NOTED AT THIS TIME
--- NOTE | 2020-05-10 23:20 | NUR ---
BEDRESTING. EYES CLOSED. SBP LESS THAN 100. B/P HX INDICATES THIS IS PATIENT'S USUAL READINGS. SHE DENIES FEELING WEAK OR TIRED.
--- NOTE | 2020-05-10 23:21 | NUR ---
BEDRESTING. LIGHTS OUT. EYES CLOSED. ATE A MEAL. TOLERATED WELL. PHONE CHARGING. ASKED IF SHE WOULD GO HOME IN [facility]. INFORMED MD WOULD EVALUATE HER CONDITION IN THE MORNING AND THEY WOULD DECIDE FROM THERE
[2020-05-11] VITALS (16 sets, daily range): BP systolic 70–113; BP diastolic 39–60
--- NOTE | 2020-05-11 00:51 | NUR ---
BEDRESTING. LIGHTS OUT. EYES CLOSED. NO COUGH OR DISTRESS NOTED
--- NOTE | 2020-05-11 02:47 | NUR ---
BEDRESTING. RESP EVEN AND NONLABORED. NO DISTRESS NOTED
--- NOTE | 2020-05-11 04:00 | NUR ---
BEDRESTING. EYES CLOSED. RESP EVEN AND NONLABORED. NO COUGH NOTED. N/C VOICED. IN [place] PRECAUTIONS
--- NOTE | 2020-05-11 05:13 | NUR ---
TYLENOL PER REQUEST FOR H/A. PT REQUESTED HL BE REMOVED FROM RIGHT A/C IT WAS UNCOMFORTABLE. SO, RAC HL REMOVED AND IV FLUIDS INFUSING INTO #20 OF LEFT A/C
--- NOTE | 2020-05-11 06:28 | NUR ---
BEDRESTING. TYLENOL EFFECTIVE. N/C AT THIS TIME.
--- NOTE | 2020-05-11 06:53 | NUR ---
REPORT GIVEN. PT BEDRESTING
--- NOTE | 2020-05-11 07:15 | NUR ---
pt awake in bed; no apparent distress noted; pt offers no complaints; assessment completed at this time; pt alert and oriented; denies pain; no n/v noted; resp even and unlabored; lungs clear; skin color wnl; ra; pearl glue drier cough noted; hr reg; strong pulses; no edema noted; sr on monitor; abd soft with bs present; no bm noted per administrative underwriter; pt admits to voiding without complication; no urine to inspect at this time; #20 patent to rac with ivf infusing as per orders; plan of care/ am meds explained; pt noted hypotensive/ asyptomatic; call light within reach; will continue to monitor
[2020-05-11] MEDS ORDERED: TOPIRAMATE50 MG PO (07:40)
[2020-05-11] MEDS ORDERED: ESTRACE1 MG PO (07:40)
--- NOTE | 2020-05-11 08:08 | NUR ---
Dr Wade and CAITLYN Cobian present at bedside to assess pt and discuss plan of care
--- NOTE | 2020-05-11 08:12 | NUR ---
pt awake in bed; no apparent distress noted; sr on monitor; am med explained and administered; pt denies needs; call light within reach; will continue to monitor
--- NOTE | 2020-05-11 10:20 | NUR ---
awake in bed conversing on cell phone; no apparent distress noted; iv intact and patent; pt offers no complaints; call light within reach; will continue to monitor
--- NOTE | 2020-05-11 12:15 | NUR ---
awake in bed conversing on cell phone; no apparent distress noted; pt offers no complaints; iv intact and patent; sr on monitor; call light within reach; will continue to monitor
--- NOTE | 2020-05-11 13:59 | NUR ---
resting in bed; no apparent distress noted; pt offers no complaints; iv intact and patent; sr on monitor; call light within reach; will continue to monitor
--- NOTE | 2020-05-11 15:10 | NUR ---
Dr Wade called this newspaper writer; update provided; pt expresses wishes to go home; discharhge orders to be placed
[2020-05-11] MEDS ORDERED: ZITHROMAX500 MG PO (15:14)
--- NOTE | 2020-05-11 15:52 | NUR ---
DISCHARGE INSTRUCTIONS REVIEWED WITH PT IN DETAIL; PT ADMITS TO UNDERSTANDING; AWAITING CONSTRUCTION COORDINATOR
--- NOTE | 2020-05-11 16:44 | NUR ---
Discharge instructions given. Patient verbalizes understanding of same. Discharged in stable condition via Ambulatory to Home with family. All belongings sent with pt.
== END 2020-05-11 16:44 | disposition home or self-care (01) | DRG 872 ==
LOC: ED 14:34 → ED-I 17:29 → ED 17:32 → ICU 17:33
PROVIDERS: Student in an Organized Health Care Education/Training Program; ADMIT Internal Medicine; ATTEND Internal Medicine
DX: A41.9 Sepsis, unspecified organism (principal); J02.0 Streptococcal pharyngitis; I95.9 Hypotension, unspecified; F41.9 Anxiety disorder, unspecified; F32.9 Major depressive disorder, single episode, unspecified; K21.9 Gastro-esophageal reflux disease without esophagitis; Z86.19 Personal history of other infectious and parasitic diseases; Z20.828 Contact with and (suspected) exposure to other viral communicable diseases

== ENCOUNTER 2020-08-05 15:38 | Emergency (ER) | payer OTHER, MEDICAID ==
[~2020-08-05] VITALS: Ht 160 cm; Wt 85.0 kg
[~2020-08-05 15:38] MED LIST changes: +ESTRACE1 MG PO; +TOPIRAMATE50 MG PO; +ZITHROMAX500 MG PO
[2020-08-05 16:23] LABS: URINE BILIRUBIN - DIPSTICK NEGATIVE (NEGATIVE); URINE BLOOD DIPSTICK NEGATIVE (NEGATIVE); URINE COLOR YELLOW; URINE GLUCOSE - DIPSTICK NEGATIVE (NEGATIVE); URINE KETONE NEGATIVE (NEGATIVE); URINE LEUK ESTERASE NEGATIVE (NEGATIVE); URINE NITRITE - DIPSTICK NEGATIVE (Negative); URINE PROTEIN - DIPSTICK NEGATIVE (NEG-TRACE); URINE SPECIFIC GRAVITY 1.015; URINE UROBILINOGEN - DIPSTICK 0.2 E.U./dL (0.2)
[2020-08-05 16:36] LABS: HEMATOCRIT 43.5 % (37.0-47.0); HEMOGLOBIN 14.1 g/dl (12.0-16.0); IMMATURE GRANULOCYTES 0.3 % (0.0-5.0); MEAN CELL VOLUME 83.7 fL CALC (80.0-100.0); MEAN CORPUSCULAR HGB 27.1 pG CALC (26.0-32.0); MEAN CORPUSCULAR HGB CONC 32.4 g/dL CAL (32.0-36.0); NEUT# 5.68 thou/uL (2.00-7.15); RED BLOOD COUNT 5.2 mill/uL (4.20-5.60)
[2020-08-05 16:58] LABS: ALBUMIN 4.7 g/dL (3.2-5.0); ALKALINE PHOSPHATASE 160 u/l (38-126); AMYLASE 56 u/l (30-110); BILIRUBIN, TOTAL 0.4 mg/dL (0.0-1.4); BUN 13 mg/dL (7-17); BUN/CREATININE RATIO 21 (12-20 (CALC)); CARBON DIOXIDE 28 mmol/l (22-30); CHLORIDE 105 mmol/l (95-108); CREATININE 0.7 mg/dL (0.5-1.0); GFR > 60 ML/MIN (>=60 (CALC)); GFR FOR AFR.AMER. > 60 ML/MIN (>=60 (CALC)); LIPASE 85 u/l (23-300); POTASSIUM 4.1 mmol/l (3.5-5.1); SGOT/AST 30 u/l (14-36)
[2020-08-05 16:59] LABS: ANION GAP 13 (6-22 (CALC)); SODIUM 142 mmol/l (137-146)
[2020-08-05] MEDS ORDERED: NAPROXEN500 MG PO (18:04)
[2020-08-05] MEDS ORDERED: CYCLOBENZAPRINE10 MG PO (18:04)
[2020-08-05] MEDS ORDERED: CIPROFLOXACN500 MG PO (18:04)
[2020-08-05 18:20] VITALS: BP 124/60
== END 2020-08-05 18:20 | disposition home or self-care (01) | DRG 690 ==
LOC: ED 15:38
PROVIDERS: Emergency Medicine
DX: N39.0 Urinary tract infection, site not specified (principal); S33.5XXA Sprain of ligaments of lumbar spine, initial encounter; K21.9 Gastro-esophageal reflux disease without esophagitis; X58.XXXA Exposure to other specified factors, initial encounter; Z87.442 Personal history of urinary calculi; Z86.16 Personal history of COVID-19
CPT/HCPCS: Q9967

== ENCOUNTER 2021-01-02 20:18 | Emergency (ER) | payer OTHER, MEDICAID ==
[~2021-01-02] VITALS: Ht 160 cm; Wt 85.0 kg
[~2021-01-02 20:18] MED LIST changes: +CYCLOBENZAPRINE10 MG PO; +NAPROXEN500 MG PO
[2021-01-02 22:03] VITALS: BP 115/70
== END 2021-01-02 22:03 | disposition home or self-care (01) | DRG 603 ==
LOC: ED 20:18
PROC: 0H9JXZZ Drainage of Left Upper Leg Skin, External Approach (ICD-10-PCS; principal; 2021-01-02)
DX: L02.416 Cutaneous abscess of left lower limb (principal); K21.9 Gastro-esophageal reflux disease without esophagitis; Z86.16 Personal history of COVID-19

== ENCOUNTER 2021-01-04 13:03 | Emergency (ER) | payer OTHER, MEDICAID ==
[~2021-01-04] VITALS: Ht 160 cm; Wt 77.0 kg
[2021-01-04] MEDS ORDERED: BACTRIM DS1 TAB PO (13:34)
[2021-01-04 13:38] VITALS: BP 131/79
== END 2021-01-04 13:45 | disposition home or self-care (01) | DRG 951 ==
LOC: ED 13:03
DX: Z48.01 Encounter for change or removal of surgical wound dressing (principal); E11.9 Type 2 diabetes mellitus without complications; K21.9 Gastro-esophageal reflux disease without esophagitis; Z86.16 Personal history of COVID-19

== ENCOUNTER 2021-01-16 17:14 | Emergency (ER) | payer OTHER, MEDICAID ==
[~2021-01-16] VITALS: Ht 160 cm; Wt 84.0 kg
[~2021-01-16 17:14] MED LIST changes: +BACTRIM DS1 TAB PO
[2021-01-16] MEDS ORDERED: XANAX0.25 MG PO (17:33)
[2021-01-16] MEDS ORDERED: METFORMIN500 M2 PO (17:33)
[2021-01-16 18:08] LABS: HEMATOCRIT 37.7 % (37.0-47.0); HEMOGLOBIN 12.6 g/dl (12.0-16.0); IMMATURE GRANULOCYTES 0.3 % (0.0-5.0); MEAN CELL VOLUME 82.3 fL CALC (80.0-100.0); MEAN CORPUSCULAR HGB 27.5 pG CALC (26.0-32.0); MEAN CORPUSCULAR HGB CONC 33.4 g/dL CAL (32.0-36.0); NEUT# 8.51 thou/uL (2.00-7.15); RED BLOOD COUNT 4.58 mill/uL (4.20-5.60); URINE BILIRUBIN - DIPSTICK NEGATIVE (NEGATIVE); URINE BLOOD DIPSTICK NEGATIVE (NEGATIVE); URINE COLOR YELLOW; URINE GLUCOSE - DIPSTICK NEGATIVE (NEGATIVE); URINE KETONE NEGATIVE (NEGATIVE); URINE LEUK ESTERASE NEGATIVE (NEGATIVE); URINE PROTEIN - DIPSTICK NEGATIVE (NEG-TRACE); URINE SPECIFIC GRAVITY 1.025; URINE UROBILINOGEN - DIPSTICK 0.2 E.U./dL (0.2)
[2021-01-16 18:09] LABS: URINE NITRITE - DIPSTICK NEGATIVE (Negative)
[2021-01-16 18:23] LABS: ALBUMIN 4.3 g/dL (3.2-5.0); ALKALINE PHOSPHATASE 158 u/l (38-126); ANION GAP 16 (6-22 (CALC)); BILIRUBIN, TOTAL 0.3 mg/dL (0.0-1.4); BUN 10 mg/dL (7-17); BUN/CREATININE RATIO 15 (12-20 (CALC)); CARBON DIOXIDE 23 mmol/l (22-30); CHLORIDE 102 mmol/l (95-108); CREATININE 0.7 mg/dL (0.5-1.0); GFR > 60 ML/MIN (>=60 (CALC)); GFR FOR AFR.AMER. > 60 ML/MIN (>=60 (CALC)); SGOT/AST 37 u/l (14-36); SODIUM 136 mmol/l (137-146)
[2021-01-16 18:49] VITALS: BP 100/72
== END 2021-01-16 18:56 | disposition home or self-care (01) | DRG 103 ==
LOC: ED 17:14
PROVIDERS: Family Medicine
DX: R51.9 Headache, unspecified (principal); E11.9 Type 2 diabetes mellitus without complications; K21.9 Gastro-esophageal reflux disease without esophagitis; Z86.16 Personal history of COVID-19; Z79.84 Long term (current) use of oral hypoglycemic drugs

== ENCOUNTER 2021-07-22 15:13 | Emergency (ER) | payer OTHER, MEDICAID ==
[~2021-07-22] VITALS: Ht 160 cm; Wt 85.0 kg
[~2021-07-22 15:13] MED LIST changes: +METFORMIN500 M2 PO; +XANAX0.25 MG PO
[2021-07-22 16:22] LABS: URINE BILIRUBIN - DIPSTICK NEGATIVE (NEGATIVE); URINE BLOOD DIPSTICK NEGATIVE (NEGATIVE); URINE CLARITY CLEAR; URINE COLOR YELLOW; URINE GLUCOSE - DIPSTICK NEGATIVE (NEGATIVE); URINE KETONE NEGATIVE (NEGATIVE); URINE LEUK ESTERASE NEGATIVE (Negative); URINE NITRITE - DIPSTICK NEGATIVE (Negative); URINE PH 6.5 (4.5-8.0); URINE PROTEIN - DIPSTICK NEGATIVE (NEG-TRACE); URINE SPECIFIC GRAVITY 1.015; URINE UROBILINOGEN - DIPSTICK 0.2 E.U./dL (0.2)
[2021-07-22] MEDS ORDERED: CYCLOBENZAPRINE10 MG PO (18:37)
[2021-07-22] MEDS ORDERED: NAPROXEN500 MG PO (18:37)
[2021-07-22 18:40] VITALS: BP 124/52
== END 2021-07-22 19:14 | disposition home or self-care (01) | DRG 556 ==
LOC: ED 15:13
PROVIDERS: Emergency Medicine
DX: M79.604 Pain in right leg (principal); M54.30 Sciatica, unspecified side; F41.9 Anxiety disorder, unspecified; E11.40 Type 2 diabetes mellitus with diabetic neuropathy, unspecified; K21.9 Gastro-esophageal reflux disease without esophagitis; Z79.84 Long term (current) use of oral hypoglycemic drugs; Z86.16 Personal history of COVID-19